=== PATIENT | male | born 1990 | race Caucasian/White ===

== ENCOUNTER 2020-11-16 19:34 | Emergency (ER) | payer MEDICAID, SELFPAY ==
[2020-11-16] VITALS (16 sets, daily range): BP systolic 100–129; BP diastolic 56–71; PULSE 53–77; RESP 15–25; TEMP 36.6; O2SAT 96–99; BMI 21.5
--- NOTE | 2020-11-16 | DI.RAD.S_ITS ---
PROCEDURE: XR LUMBAR SPINE 2-3V INDICATIONS: PAIN TECHNIQUE: 3 views of the lumbar spine were acquired. COMPARISON: None. FINDINGS: Bones: 5 [id number] vertebrae are present. There is normal bony alignment. No vertebral body compression fractures. No suspicious bony lesions. Soft tissues: Overlying bowel gas pattern is normal. No suspicious soft tissue calcifications. IMPRESSION: No acute osseous abnormality. Dictated by: Heber Del Rosario M.D. on 11/16/2020 at 20:21 Approved by: Heber Del Rosario M.D. on 11/16/2020 at 20:21
--- NOTE | 2020-11-16 19:49 | DI.RAD.S_ITS ---
PROCEDURE: XR WRIST RT MIN 3V INDICATIONS: glf wrist pain TECHNIQUE: 4 views of the wrist were acquired. COMPARISON: None. FINDINGS: Bones: Comminuted distal radius fracture. Fracture is dorsally angulated and mildly impacted. There is intra-articular extension. No dislocations. No suspicious bony lesions. Scaphoid view: Intact. Soft tissues: No suspicious soft tissue calcifications. IMPRESSION: Comminuted distal radius fracture. Dictated by: Heber Del Rosario M.D. on 11/16/2020 at 20:20 Approved by: Heber Del Rosario M.D. on 11/16/2020 at 20:21
[2020-11-16] MEDS: HYDROCODONE/ACET 5/325 PREPACK 1 BOTTLE MISC (20:48)
[2020-11-16] MEDS: ONDANSETRON 4 MG ODT PREPACK 1 BOTTLE MISC (20:48)
[2020-11-16 21:15] LABS: COVID19 -Nasal RAPID Negative (Negative)
[2020-11-16] MEDS: propofoL 200 MG/20 ML VIAL 70 MG IV ×2 (22:16→22:19)
--- NOTE | 2020-11-16 22:19 | DI.RAD.S_ITS ---
PROCEDURE: XR WRIST RT 2V INDICATIONS: post reduction TECHNIQUE: 2 views of the wrist were acquired after reported reduction and splinting. COMPARISON: [facility], CR, XR WRIST RT MIN 3V, 11/16/2020, 19:53. FINDINGS: Bones: No newly identified fractures or dislocations. No suspicious bony lesions. Scaphoid view: Not obtained. Soft tissues: No suspicious soft tissue calcifications. IMPRESSION: The complex comminuted impacted and angulated distal radius fracture has not significantly changed after closed reduction and splinting. Orthopedic surgical consultation is anticipated. Dictated by: Hugh Traylor M.D. on 11/17/2020 at 8:24 Approved by: Hugh Traylor M.D. on 11/17/2020 at 8:25
--- NOTE | 2020-11-17 06:18 | ED_ITS ---
HPI - Extremity Injury (Upper) General Chief Complaint: Extremity Injury, Upper Stated Complaint: right wrist injury, back pain Time Seen by Provider: 11/16/20 19:37 Source: patient Mode of arrival: Ambulatory Limitations: no limitations History of Present Illness HPI narrative: 30-year-old male nonsmoker with noncontributory medical history presents with a chief complaint of an accidental ground level fall onto an outstretched wrist and an obvious deformity with pain. He denies any elbow or shoulder injury. He states he did suffer some abrasions to his forehead but has full recall denies any loss of consciousness, nausea or vomiting. He denies use of alcohol or street drugs and takes no blood thinners. He denies any neck pain but did tweak his back a bit on the way down. His wrist is very painful with any motion. He denies any numbness, tingling or weakness MD complaint: injury to: right and wrist Onset (ago): hour(s) Other Extremity Injury: Right: wrist Other injuries: back Handedness: right Place: outdoors Severity: moderate Relieving factors: immobilization and rest Exacerbating factors: movement of extremity Context: fall and direct blow Treatments prior to arrival: cold therapy and splint Related Data Previous Rx's Medication Instructions Recorded hydrocodone-acetaminophen 1 tab PO Q4-6H PRN #20 tab 11/16/20 Allergies Allergy/AdvReac Type Severity Reaction Status Date / Time No Known Drug Allergies Allergy Verified 11/16/20 20:58 Review of Systems Constitutional Constitutional: Denies chills, Denies fatigue, Denies fever(s), Denies frequent falls, Denies lethargy and Denies weakness Eyes Eyes: Denies change in vision, Denies eye discharge, Denies irritation and Denies loss of vision ENT Ears, Nose, Mouth, and Throat: Denies change in voice, Denies dizziness, Denies neck pain, Denies sore throat and Denies throat swelling Cardiovascular Cardiovascular: Denies chest pain, Denies irregular heart rhythm, Denies lightheadedness, Denies palpitations, Denies dyspnea, Denies dyspnea on exertion and Denies orthopnea Respiratory Respiratory: Denies cough, Denies dyspnea, Denies dyspnea on exertion and Denies wheezing Gastrointestinal Gastrointestinal: Denies abdominal pain, Denies change in bowel habits, Denies diarrhea, Denies nausea and Denies vomiting Musculoskeletal Musculoskeletal: Reports back pain, Reports deformity, Reports arthralgias, Reports joint swelling, Reports limited range of motion, Denies neck pain and Denies numbness Integumentary/Breasts Skin/Breast: Denies pruritus, Denies erythema, Denies rash and Denies wounds Neurologic Neurologic: Denies behavioral changes, Denies confusion, Denies dizziness, Denies frequent falls, Denies loss of vision, Denies numbness and Denies weakness Psychiatric Psychiatric: Denies anxiety, Denies behavioral changes, Denies confusion, Denies depression, Denies homicidal ideation and Denies suicidal ideation Endocrine Endocrine: Denies fatigue, Denies flushing and Denies palpitations Hematologic/Lymphatic Hematologic/Lymphatic: Denies easy bruising Allergic/Immunologic Allergic/Immunologic: Denies urticaria, Denies throat swelling and Denies wheezing Patient History Smoking Status: Never smoker alcohol intake frequency: 0-2 drinks per day Substance Use Type: does not use Exam Narrative Exam Narrative: GENERAL: [] 30 year old patient appears stated age. Well- nourished, well-developed patient, in mild distress. GCS 15 HEAD: Mild forehead abrasions, and no suggestion of depressed skull fracture EYES: Pupils equal round and reactive. Extraocular motions intact. No scleral icterus. No injection or drainage. ENT: Nose without bleeding, purulent drainage. Throat without erythema, tonsillar hypertrophy or exudate. Airway patent. NECK: Trachea midline. Non tender CARDIOVASCULAR: Regular rate and rhythm without murmurs, gallops, or rubs. RESPIRATORY: Clear to auscultation. Breath sounds equal bilaterally. No wheezes, rales, or rhonchi. GASTROINTESTINAL: Abdomen soft, non-tender, nondistended. EXTREMITIES: Obvious deformity to right wrist, range of motion limited by pain. Moderate swelling, particularly on the dorsal aspect, cap refill less than 2 seconds, sensation intact. Compartments are soft. No elbow or shoulder pain. 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 Patient exam notes decreased range of motion and muscle spasm, but no CVA tenderness, or vertebral point tenderness. There are no symptoms of cauda equina such as saddle anesthesia, and decreased reflexes, decreased sensation or strength. NEURO: AOx3. SKIN: No rash or erythema of visible areas Initial Vital Signs Initial Vital Signs: Vital Signs Temperature 98 F 11/16/20 20:05 Pulse Rate 74 11/16/20 20:05 Respiratory Rate 18 11/16/20 20:05 Blood Pressure 116/56 L 11/16/20 20:05 Pulse Oximetry 97 11/16/20 20:05 Procedures Orthopedic Fracture Reduction Fracture #1: Time Out Performed: Yes Side: right Fracture Reduction Location: radius Analgesia: procedural sedation Technique: direct manipulation Post Reduction X-rays Demonstrate: other (Minimal change, unfortunately this was expected nature of injury) Post-reduction neuro exam: intact Post-reduction vascular exam: intact Splint Applied: Yes Patient Tolerated Procedure: Well Orthopedic Splinting/Casting Injury #1: Side: right Upper Extremity Injury Location: wrist Upper Extremity Immobilizer: sling/shoulder immobilizer and sugar tong splint Post splinting neuro exam: intact Post splinting vascular exam: intact Placed by: Provider Procedural Sedation Consent signed: Yes Time out performed: Yes Indication: fracture/dislocation reduction ASA Class: I Preparation: bus monitor applied, pulse oximeter, capnometry used, supplemental O2 applied, reversal agents at bedside and IV secured IV Propofol dose (mg): 140 Intraservice time/total sedation time (min): 10 ED Sedation Level: Moderate (Concious) Patient Tolerated Procedure: Well Complications: none Course Orders Ordered: ED Orders 11/16/20 22:19 XR wrist RT 2V Stat Discontinued Medications Hydrocodone Bitart/Acetaminophen (Hydrocodone/Acet 5/325 Prepack) 1 bottle MISC SEEINSTR ONE Stop: 11/16/20 20:39 Last Admin: 11/16/20 20:48 Dose: 1 bottle Documented by: ADONIS Ondansetron HCl (Ondansetron 4 Mg Odt Prepack) 1 bottle MISC SEEINSTR ONE Stop: 11/16/20 20:39 Last Admin: 11/16/20 20:48 Dose: 1 bottle Documented by: ADONIS Propofol (Propofol 200 Mg/20 Ml Vial) 70 mg 1 mg/kg (70 mg) IV NOW ONE Stop: 11/16/20 20:48 Last Admin: 11/16/20 22:16 Dose: 70 mg Documented by: RU Propofol (Propofol 200 Mg/20 Ml Vial) 70 mg 1 mg/kg (70 mg) IV NOW ONE Stop: 11/16/20 22:09 Last Admin: 11/16/20 22:19 Dose: 70 mg Documented by: RU Consultations Consultation #1: discussed with ortho (Shaylee) in agreement with reduction attempt, splint, sling, pain control, DC and close follow up Vital Signs Vital signs: Vital Signs - 8 hr 11/16/20 22:20 11/16/20 22:25 11/16/20 22:30 Pulse Rate 70 63 61 Respiratory Rate 17 19 15 Blood Pressure 126/62 117/57 L 120/64 Pulse Oximetry 99 98 98 11/16/20 22:40 11/16/20 23:00 11/16/20 23:01 Pulse Rate 57 L 62 53 L Respiratory Rate 19 25 H 22 Blood Pressure 121/67 129/60 Pulse Oximetry 98 98 99 11/16/20 23:20 Pulse Rate 63 Respiratory Rate 19 Blood Pressure 108/64 Pulse Oximetry 97 MDM - Extremity Injury (Upper) Lab Data Labs: Lab Results 11/16/20 Range/Units 20:56 SARS-CoV-2 (PCR) Negative (Negative) Discharge Plan Departure Patient Disposition: Home Clinical Impression: Distal radius fracture, right Qualifiers: Encounter type: initial encounter Fracture type: closed Fracture morphology: unspecified fracture morphology Qualified Code(s): S52.501A - Unspecified fracture of the lower end of right radius, initial encounter for closed fracture Instructions: DI for Distal Radius Fracture Activity Restrictions/Additional Instructions: *You have been diagnosed with [comminuted right distal radius fracture] *What to do: *Take medications as directed *Follow up with [facility] in 2-3 days, call for an appointment. Let them know you were seen in the Emergency Department and that we ask that you be seen in follow up *Return to ER if you should have any new, worsening or concerning symptoms, such as [increasing pain, numbness, tingling, discoloration of your fingers or other bothersome symptoms Splint Care: Keep splint clean and dry. Elevated affected body part to decrease swelling. OK to use ice pack on the affected body part. Use for 15-20 minutes each time, for 5-6x per day. If you develop worsening pain, numbness, tingling, discoloration of the affected body part, loosen the splint by loosening the ART wrap, and either see your doctor for an urgent re-assessment, or return to the Emergency Department. Return to the Emergency Department for any new or worsening symptoms. You have been prescribed narcotic medications. While on these medications you cannot drive or operate heavy machinery. Additionally you cannot sign legal documents or perform any duties such as this. 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 Please understand that we cannot provide further refills of narcotics or controlled substances through the ED and your pain management will need to be through your Primary Care Provider] Prescriptions: New hydrocodone-acetaminophen 5-325 mg tablet 1 tab PO Q4-6H PRN (Reason: pain) Qty: 20 RF: 0 Referrals: Alessandro June MD [Physician] -
== END 2020-11-16 23:46 | disposition home or self-care (01) ==
PROVIDERS: Emergency Provider Emergency Medicine
DX: S52.501A Unspecified fracture of the lower end of right radius, initial encounter for closed fracture (principal); M54.9 Dorsalgia, unspecified; W18.30XA Fall on same level, unspecified, initial encounter; Z20.822 Contact with and (suspected) exposure to COVID-19
CPT/HCPCS: 25605; 72100; 73100; 73110; 87635; 99152; 99284; 99285; C9803; J2704